=== PATIENT | female | born 1965 | race Two or more races ===

== ENCOUNTER 2022-05-21 20:13 | Emergency (ER) | payer SELFPAY ==
[~2022-05-21] VITALS: Ht 160 cm; Wt 110.2 kg
[2022-05-21 21:20] LABS: Basophils # (auto) 0.1 10 ^3/uL (0-0.2); Basophils % (auto) 0.7 % (0.0-2.0); Eosinophils # (auto) 0 10 ^3/uL (0-0.8); Eosinophils % (auto) 0.3 % (0.0-7.0); Hematocrit 32.3 % (36.0-46.0); Lymphocytes # (auto) 1.1 10 ^3/uL (0.4-5.4); Lymphocytes % (auto) 9.7 % (10.0-50.0); Mean Corpuscular Hemoglobin 29.2 pg (28.0-32.0); Mean Corpuscular Hgb Conc. 33.9 g/dL (32.0-36.0); Monocytes # (auto) 1.2 10 ^3/uL (0-1.3); Monocytes % (auto) 10.1 % (0.0-12.0); Neutrophils # (auto) 9.3 10 ^3/uL (1.6-8.6); Neutrophils % (auto) 79.2 % (37.0-80.0); Red Blood Cells 3.76 10^6/uL (4.0-5.20); Red Cell Distribution Width 13.9 % (11.8-14.3); White Blood Cell 11.8 10^3/uL (4.4-10.8)
[2022-05-21 21:37] LABS: Albumin 3.1 g/dL (3.4-5.0); Calcium 8.7 mg/dL (8.5-10.1); Magnesium 2.5 mg/dL (1.6-2.6); Potassium 3.1 mmol/L (3.5-5.1)
[2022-05-21 21:42] LABS: Total Protein 7.1 g/dL (6.4-8.2)
[2022-05-22] MEDS ORDERED: IOHEXOL 350 MG/ML 100ML IJ ONE (00:06)
[2022-05-22] MEDS ORDERED: ESMOLOL HCL-NS 10MG/ML 250 ML IV SCH ×2 (01:00→02:30)
[2022-05-22 01:43] LABS: INR 1.02 (0.9-1.15)
[2022-05-22 02:55] LABS: Urine Bacteria FEW /hpf (None Seen); Urine Blood 2+ /uL (Negative); Urine Mucus FEW (None Seen); Urine Specific Gravity > 1.050 (1.001-1.035); Urine WBC 6 /hpf (0 - 5)
[2022-05-22 03:52] VITALS: BP 109/55
== END 2022-05-22 03:58 | disposition short-term general hospital (02) ==
LOC: ER 20:13
DX: I71.012 Dissection of descending thoracic aorta (principal); I10 Essential (primary) hypertension; Z88.0 Allergy status to penicillin
CPT/HCPCS: 36415; 71045; 71275; 80053; 81001; 83735; 83880; 84443; 84484; 85025; 85379; 85610; 93005; 96365; 99285; J3490; Q9967